=== PATIENT | male | born 1940 | race Caucasian/White ===

== ENCOUNTER → 2019-06-23 | Outpatient (CLI) | payer MEDICARE, BC ==
[~2019-06-23] MED LIST: AMLO5; ASPI81CH PO; BUME1; EPIN.3I; GABA800; LISI20; LISI20 PO; MULTIVITAMIN; TAMS.4ER; TAMS.4ER PO; VITAMIN C
== END | disposition home or self-care (01) ==
LOC: PLD 11:42 → LAB SHORT 11:42
DX: L57.0 Actinic keratosis (principal)
CPT/HCPCS: 88305

== ENCOUNTER 2020-07-22 09:43 | Emergency (ER) | payer MEDICARE, BC ==
[~2020-07-22] VITALS: Ht 188 cm; Wt 102.1 kg
[~2020-07-22 09:43] MED LIST changes: -ASPI81CH PO; +Aspirin EC81 MG PO
[2020-07-22] MEDS ORDERED: CLON.1 (10:17)
[2020-07-22] MEDS ORDERED: LEVSOD112 PO (10:17)
[2020-07-22 10:29] LABS: Source, Urine Catheter
[2020-07-22 10:34] LABS: Bilirubin, Urine Neg (Neg); Blood, Urine 2+ (Neg); Glucose Qualitative, Urine Neg (Neg); Ketones, Urine Neg (Neg); Leukocyte Esterase, Urine 1+ (Neg); Nitrite, Urine Neg (Neg); Protein, Urine 2+ (Neg); Urobilinogen, Urine NORM (Normal)
[2020-07-22 10:42] LABS: Appearance, Urine Hazy (Clear); Bacteria Rare /hpf; Color, Urine Yellow (P-Yellow); Red Blood Cells, Urine 0-2 /hpf (0-2); White Blood Cells, Urine 0-2 /hpf (0-5)
[2020-07-22 10:43] LABS: Squamous Epithelial Cells Rare /hpf (Few)
== END 2020-07-22 11:50 | disposition home or self-care (01) ==
LOC: ER 09:43
PROVIDERS: Emergency Medicine
DX: N39.0 Urinary tract infection, site not specified (principal); Z79.82 Long term (current) use of aspirin; Z79.899 Other long term (current) drug therapy; Z87.891 Personal history of nicotine dependence; Z91.030 Bee allergy status; Z91.041 Radiographic dye allergy status
CPT/HCPCS: 51702; 81001; 87086; 99283-25

== ENCOUNTER 2020-11-30 11:16 | Observation (INO) | payer MEDICARE, BC ==
[~2020-11-30] VITALS: Ht 188 cm; Wt 104.2 kg
[~2020-11-30 11:16] MED LIST changes: +CLON.1; +LEVSOD112 PO
[2020-11-30 12:04] LABS: BASOPHILS ABSOLUTE AUTO 0.06 K/mm3 (0.00-0.23); BASOPHILS PERCENT AUTO 1 % (0-2); EOSINOPHILS ABSOLUTE AUTO 0.34 K/mm3 (0.00-0.68); EOSINOPHILS PERCENT AUTO 5 % (0-6); Hemoglobin 14.4 g/dL (13.5-17.5); IMMATURE GRAN ABSOLUTE AUTO 0.01 K/mm3 (0.00-0.10); IMMATURE GRAN PERCENT AUTO 0 % (0-1); LYMPHOCYTES ABSOLUTE AUTO 1.15 K/mm3 (0.84-5.20); LYMPHOCYTES PERCENT AUTO 18 % (21-46); MONOCYTES ABSOLUTE AUTO 0.72 K/mm3 (0.16-1.47); MONOCYTES PERCENT AUTO 12 % (4-13); Mean Corpuscular HGB 30.8 pg (26.0-34.0); Mean Corpuscular HGB Conc 34.3 g/dL (31.5-36.5); Mean Corpuscular Volume 90 fL (80-100); Mean Platelet Volume 9.8 fL (9.1-12.4); NEUTROPHILS ABSOLUTE AUTO 3.99 K/mm3 (1.96-9.15); NEUTROPHILS PERCENT AUTO 64 % (41-73); Platelet Count 250 K/mm3 (150-400); RDW Coefficient Variation 12.6 % (11.7-14.2); RDW Standard Deviation 41.7 fL (35.1-46.3); Red Blood Cell Count 4.67 M/mm3 (4.30-5.90); White Blood Cell Count 6.27 K/mm3 (4.00-11.30)
[2020-11-30 12:29] LABS: Albumin, Blood 3.5 g/dL (3.4-5.0); Albumin/Globulin Ratio 1.1 (0.8-1.8); Bilirubin, Total 0.8 mg/dL (0.1-1.0); Bun/Creatinine Ratio 10.3 (12.0-20.0); Calcium, Blood 9.3 mg/dL (8.5-10.1); Creatinine, Blood 1.45 mg/dL (0.60-1.20); Globulin, Blood 3.2 g/dL (2.2-4.0); Potassium, Blood 4.1 mmol/L (3.5-5.5); Total Protein, Blood 6.7 g/dL (6.4-8.2)
[2020-11-30] MEDS ORDERED: SYNTHROID150 MC2 PO (12:48)
[2020-11-30] MEDS ORDERED: CLON.1 PO (12:48)
--- NOTE | 2020-11-30 15:16 | NUR ---
Echocardiogram complete.
--- NOTE | 2020-11-30 19:35 | NUR ---
ADMISSION AND END OF SHIFT SUMMARY: PATIENT ARRIVED TO UNIT WITH HIS AT HIS SIDE. NO NEUROLOGICAL DEFICITS NOTED. PATIENT ALERT AND ORIENTED X 4. PATIENT DENIED VISUAL DISTURBANCES. PATIENT ANSWERING QUESTIONS APPROPRIATELY. PATIENT REPORTED HEARING LOSS AT BASELINE. PATIENT DENIED CHEST PAIN, SHORTNESS OR BREATHING AND/OR NUMBNESS/TINGLING. PATIENT REPORTED THAT HE CURRENTLY FEELS WELL. PATIENT REPORTED MILD HEADACHE RELATED TO SINUS PAIN AND LACK OF CAFFEINE. DISCUSSED WITH DR. MACARIO. NEW ORDERS RECEIVED. PATIENT AND HIS EXPRESSED THAT THEY ARE MOTIVATED TO MAKE CHANGES THAT NEED TO BE MADE TO ENSURE THAT ANOTHER TIA OR CVA DOES NOT HAPPEN.
[2020-12-01 05:15] LABS: CHOL/HDL RATIO 4.8; Cholesterol 177 mg/dL (50-200); HDL Cholesterol 37 mg/dL (>39); LDL/HDL RATIO 2.8; Low Density Lipoprotein Chol 105 mg/dL (0-110); Triglycerides 176 mg/dL (30-160); Very Low Density Lipoprot Chol 35 mg/dL (6-32)
--- NOTE | 2020-12-01 05:15 | NUR ---
SHIFT SUMMARY NO ACUTE CHANGES THIS SHIFT, NO C/O ANY KIND, BRADYCARDIAC T/O THE NIGHT OCCASIONALLY DROPPING TO 38 BRIEFLY BUT SUSTAINS AROUND 50'S AND UP TO 80'S W/ACTIVITY, MEDICATED 1X FOR HTN THIS AM (), SLEPT T/O THE NIGHT, BEDRESTING WATCHING TV AT THIS TIME, CALL LIGHT IN REACH, WILL CONT TO MONITOR UNTIL REPORT GIVEN TO DAY RN.
--- NOTE | 2020-12-01 09:34 | NUR ---
HYPERTENSION SBP 190-210, PER DR. MACARIO, RESUME HOME MEDS LISINOPRIL AND CLINIDINE. GIVE FIRST DOSE NOW. EMAR UPAAMY.
[2020-12-01] MEDS ORDERED: ATOR40TA PO (14:23)
--- NOTE | 2020-12-01 15:03 | NUR ---
Discharge Summary A/Ox4, pleasant and cooperative. Up independently. Discharging to home. Reviewed discharge paperwork with patient and at bedside, questions answered to their satisfaction. Copy given. IV removed. Escorted by [employer] via w/c with all personal belongings including cell phone. Meds faxed. Denies blurry vision, nausea, vomiting.
== END 2020-12-01 14:59 | disposition home or self-care (01) ==
LOC: ER 11:16 → ERHOLD 11:17 → MEDS 15:59
PROVIDERS: Emergency Medicine; Nurse Practitioner Acute Care; ADMIT Internal Medicine
DX: G45.9 Transient cerebral ischemic attack, unspecified (principal); I13.10 Hypertensive heart and chronic kidney disease without heart failure, with stage 1 through stage 4 chronic kidney disease, or unspecified chronic kidney disease; N18.30 Chronic kidney disease, stage 3 unspecified; J44.9 Chronic obstructive pulmonary disease, unspecified; E03.9 Hypothyroidism, unspecified; E78.2 Mixed hyperlipidemia; E66.01 Morbid (severe) obesity due to excess calories; Z68.28 Body mass index [BMI] 28.0-28.9, adult; R00.1 Bradycardia, unspecified; I45.10 Unspecified right bundle-branch block; I35.8 Other nonrheumatic aortic valve disorders; N40.0 Benign prostatic hyperplasia without lower urinary tract symptoms; G93.89 Other specified disorders of brain; Z88.8 Allergy status to other drugs, medicaments and biological substances; Z91.041 Radiographic dye allergy status; Z91.038 Other insect allergy status; Z87.891 Personal history of nicotine dependence; Z86.73 Personal history of transient ischemic attack (TIA), and cerebral infarction without residual deficits
CPT/HCPCS: 36415; 70450; 70551; 80053; 80061; 84484; 85025; 93005; 93010; 93306; 93880; 96372; 96374; 99285-25; A9270; G0378; J0360; J1650

== ENCOUNTER → 2021-01-10 | Outpatient (CLI) | payer MEDICARE, BC ==
[~2021-01-10] MED LIST changes: +ATOR40TA PO; +CLON.1 PO; +SYNTHROID150 MC2 PO
== END ==
LOC: LAB 12:17 → LAB SHORT 12:17
DX: D48.5 Neoplasm of uncertain behavior of skin (principal); D23.39 Other benign neoplasm of skin of other parts of face; D22.39 Melanocytic nevi of other parts of face; Z91.041 Radiographic dye allergy status; Z91.038 Other insect allergy status
CPT/HCPCS: 88305

== ENCOUNTER 2021-07-02 09:42 | Day surgery (SDC) | payer MEDICARE, BC ==
[~2021-07-02] VITALS: Ht 188 cm; Wt 98.0 kg
[2021-07-02] MEDS ORDERED: CLOP75 PO (10:53)
[2021-07-02] MEDS ORDERED: REPATHA SY140 MG/1 M SC (10:53)
[2021-07-02] MEDS ORDERED: PANT40 PO (10:54)
[2021-07-02] MEDS ORDERED: BUME1 PO (10:57)
[2021-07-02] MEDS ORDERED: FERSU300 PO (10:57)
[2021-07-02] MEDS ORDERED: COQ-10100 MG PO (10:58)
[2021-07-02] MEDS ORDERED: VITAMIN D5000 UNIT PO (10:58)
[2021-07-02] MEDS ORDERED: CALCIUM CARBON500 M1 PO (10:58)
--- NOTE | 2021-07-02 12:05 | NUR ---
PT AWAKE AND CONVERSING APPROPRIATELY, DENIES PAIN POST PROCEDURE, VSS.
--- NOTE | 2021-07-02 12:20 | NUR ---
PT DRESSED SELF WITHOUT ISSUE, GAIT STEADY; IV REMOVED-CANNULA INTACT.
--- NOTE | 2021-07-02 12:28 | NUR ---
PT RECEIVED DISCHARGE INSTRUCTIONS, MED LIST AND AFTER CARE INSTRUCTIONS; VERBALIZED GOOD UNDERSTADNING. PT LEFT FACILITY VIA W/C, CONDITION STABLE.
== END 2021-07-02 23:28 | disposition home or self-care (01) ==
LOC: MHTC 09:42
DX: Q21.1 Atrial septal defect (principal); I12.9 Hypertensive chronic kidney disease with stage 1 through stage 4 chronic kidney disease, or unspecified chronic kidney disease; N18.9 Chronic kidney disease, unspecified; J44.9 Chronic obstructive pulmonary disease, unspecified; E03.9 Hypothyroidism, unspecified; E78.5 Hyperlipidemia, unspecified; F17.200 Nicotine dependence, unspecified, uncomplicated; Z88.8 Allergy status to other drugs, medicaments and biological substances; Z91.014 Allergy to mammalian meats; Z91.038 Other insect allergy status
CPT/HCPCS: 93312; 93325; A9270; J2704; J7030